=== PATIENT | male | born 1975 | race Caucasian/White ===

== ENCOUNTER 2017-07-04 12:55 | Outpatient (CLI) | payer OTHER ==
[2017-07-04] MEDS ORDERED: IOHEXOL 100 ML IV ONE (13:23)
== END 2017-07-04 17:10 | disposition home or self-care (01) ==
LOC: SMI 12:55
DX: M54.5 Low back pain (principal); M50.322 Other cervical disc degeneration at C5-C6 level; M50.323 Other cervical disc degeneration at C6-C7 level; M51.36 Other intervertebral disc degeneration, lumbar region; I70.90 Unspecified atherosclerosis; Z09 Encounter for follow-up examination after completed treatment for conditions other than malignant neoplasm; Z91.81 History of falling; Z87.828 Personal history of other (healed) physical injury and trauma
CPT/HCPCS: 72125; 72131; 72240; Q9967